=== PATIENT | female | born 1985 | race Caucasian/White ===

== ENCOUNTER 2025-06-25 18:31 | Inpatient (IN) | payer OTHER ==
[~2025-06-25] VITALS: Ht 160 cm; Wt 90.7 kg
[2025-06-25 18:55] VITALS: O2SAT 99
[2025-06-25 19:37] LABS: MEAN PLATELET VOLUME 8.5 fl (7.4-10.4); PLATELET 403 x1000/uL (130-400); RED BLOOD CELL COUNT 3.21 mill/uL (4.2-5.4); RED CELL DISTRIBUTION WIDTH 22.9 % (11.6-14.6)
[2025-06-25 19:59] LABS: HEMATOCRIT. 19.5 % (36.0-48.0); HEMOGLOBIN. 5.7 g/dL (12.0-16.0)
[2025-06-25 20:00] LABS: CREATININE 0.9 mg/dL (0.6-1.0); UREA NITROGEN BLOOD 9 mg/dL (9-23)
[2025-06-25 20:14] LABS: EOSINOPHILS % MANUAL 1.0 % (0.0-5.0); LYMPHOCYTES % MANUAL 32.0 % (20.0-60.0); MONOCYTES % MANUAL 8.0 % (2.0-8.0); NEUTROPHILS % MANUAL 59.0 % (45.0-75.0)
[2025-06-25 20:15] LABS: HCG SCREEN NEGATIVE
[2025-06-25 20:16] LABS: PLATELET ESTIMATE NORMAL
[2025-06-25 21:53] LABS: INR 0.9
[2025-06-25 22:08] LABS: ASPARTATE AMINOTRANSFERASE 36 IU/L (<34); BILIRUBIN DIRECT < 0.1 mg/dL (<=3.0); BILIRUBIN TOTAL 0.2 mg/dL (0.1-1.0); PROTEIN TOTAL 7.4 g/dL (6.0-8.3)
[2025-06-25] MEDS: KETOROLAC 15MG/ML VIAL IV ONE (22:59)
[2025-06-26] VITALS (8 sets, daily range): BP systolic 117–142; BP diastolic 65–76; PULSE 61–82; RESP 17–20; TEMP 36.1–36.9; O2SAT 98–100
[2025-06-26] MEDS: DIPHENHYDRAMINE 50MG/ML VIAL IV ONE (01:20)
[2025-06-26] MEDS ORDERED: ACETAMINOPHEN 325MG TABLET PO PRN ×2 (02:30)
[2025-06-26] MEDS ORDERED: DOCUSATE SODIUM 100MG CAPSULE PO PRN (02:30)
[2025-06-26] MEDS ORDERED: ONDANSETRON HCL 4MG/2ML INJ IV PRN (02:30)
[2025-06-26] MEDS ORDERED: IPRATROPIUM/ALBUTEROL 0.5-3(2.5)MG/3ML NEB HHN PRN (02:30)
[2025-06-26] MEDS: SODIUM CHLORIDE 0.45% 1,000 ML IV SCH (02:45)
[2025-06-26] MEDS ORDERED: BUDESONIDE 0.5MG/2ML NEB HHN SCH (04:00)
[2025-06-26] MEDS: AMLODIPINE 5MG TABLET PO SCH (04:00)
[2025-06-26] MEDS ORDERED: IPRATROPIUM/ALBUTEROL 0.5-3(2.5)MG/3ML NEB HHN SCH (04:00)
[2025-06-26] MEDS: PANTOPRAZOLE SODIUM 40 MG/VIAL IV SCH (04:00)
[2025-06-26] MEDS ORDERED: ASCO-339 MT (04:25)
[2025-06-26] MEDS ORDERED: PANT40TA51 MT (04:25)
[2025-06-26] MEDS ORDERED: IBUP-2030 MT (04:25)
[2025-06-26] MEDS ORDERED: ACET-2708 PO (04:25)
[2025-06-26] MEDS ORDERED: CEPH500C2 MT (04:25)
[2025-06-26] MEDS ORDERED: FERR325T6 MT (04:25)
[2025-06-26] MEDS ORDERED: TRAN650T5 MT (04:25)
[2025-06-26] MEDS: TRANEXAMIC ACID 1,000MG/10ML IV SCH (04:54)
[2025-06-26] MEDS ORDERED: TRANEXAMIC ACID 1000MG PREMIX 100 ML IV SCH (11:00)
[2025-06-26 12:00] LABS: PHOSPHORUS 3.6 mg/dL (2.5-4.9)
[2025-06-26 12:15] LABS: CREATINE KINASE MB FRACTION < 0.5 ng/mL (0.5-3.6); TROPONIN I HIGH SENSITIVITY 13 ng/L (3.0-34)
[2025-06-26 13:00] LABS: HEPATITIS C AB NON REACTIVE (Neg) (Negative)
[2025-06-26] MEDS ORDERED: IBUPROFEN 200MG TABLET PO PRN (13:00)
[2025-06-26] MEDS ORDERED: DIPHENHYDRAMINE 50MG/ML VIAL IM PRN (13:00)
== END 2025-06-26 18:54 | disposition left against medical advice (07) | DRG 532 ==
LOC: ER 18:31 → 8WST 06-26 00:32 → EDBEDREQ 06-26 01:01 → EDBEDREQTM 06-26 01:01 → EDBEDREQDT 06-26 01:01 → ENRESERV 06-26 01:39
PROVIDERS: ADMIT Internal Medicine; ATTEND Internal Medicine
PROC: 30233N1 Transfusion of Nonautologous Red Blood Cells into Peripheral Vein, Percutaneous Approach (ICD-10-PCS; principal; 2025-06-26)
DX: D25.9 Leiomyoma of uterus, unspecified (principal); J45.901 Unspecified asthma with (acute) exacerbation; D50.0 Iron deficiency anemia secondary to blood loss (chronic); N92.0 Excessive and frequent menstruation with regular cycle; Z53.29 Procedure and treatment not carried out because of patient's decision for other reasons; Z88.5 Allergy status to narcotic agent; Z90.49 Acquired absence of other specified parts of digestive tract
CPT/HCPCS: 36415; 76856; 80048; 80076; 82550; 82553; 82728; 83540; 83550; 83605; 83735; 84100; 84145; 84484; 84703; 85014; 85018; 85025; 86705; 86850; 86900; 86920; 87340; 93005; 99291; J1200; J1885; P9016